=== PATIENT | male | born 1980 | race Caucasian/White ===

== ENCOUNTER 2022-07-20 14:30 | Emergency (ER) | payer MEDICAID ==
[~2022-07-20] VITALS: Ht 180.3 cm; Wt 85.0 kg
[2022-07-20 14:33] VITALS: BP 122/69
[2022-07-20] MEDS ORDERED: KETOROLAC 60MG/2ML VIAL IM ONE (15:15)
[2022-07-20] MEDS ORDERED: ACETAMINOPHEN 325MG TABLET PO NR (15:15)
[2022-07-20] MEDS ORDERED: ACETAMINOPHEN 325MG TABLET PO ONE (15:15)
[2022-07-20] MEDS ORDERED: KETOROLAC 60MG/2ML VIAL IM NR (15:15)
[2022-07-20] MEDS ORDERED: LIDO700A15 TP (19:04)
[2022-07-20] MEDS ORDERED: NAPR-681 MT (19:04)
== END 2022-07-20 19:15 | disposition home or self-care (01) ==
LOC: ER 14:30
DX: S30.0XXA Contusion of lower back and pelvis, initial encounter (principal); S50.01XA Contusion of right elbow, initial encounter; G89.11 Acute pain due to trauma; Y08.89XA Assault by other specified means, initial encounter; Y93.89 Activity, other specified; Y92.9 Unspecified place or not applicable
CPT/HCPCS: 72131; 73070; 73090; 96372; 99284; J1885